=== PATIENT | male | born 1950 | race Caucasian/White ===

== ENCOUNTER 2016-12-17 13:17 | Emergency (ER) | payer MEDICARE, OTHER ==
[~2016-12-17] VITALS: Ht 160 cm; Wt 83.2 kg
[2016-12-17] MEDS ORDERED: ACETAMINOPHEN 500 MG TABLET PO ONE (14:30)
[2016-12-17] MEDS ORDERED: CEPHALEXIN MONOHYDRATE 500 MG CAPSULE PO ONE (14:30)
[2016-12-17] MEDS ORDERED: DiphenhydrAMINE HCL 25 MG CAPSULE PO ONE (14:30)
[2016-12-17 15:45] VITALS: BP 144/93
== END 2016-12-17 15:49 | disposition home or self-care (01) ==
LOC: EMS 13:19
DX: T78.40XA Allergy, unspecified, initial encounter (principal); L25.9 Unspecified contact dermatitis, unspecified cause; L03.211 Cellulitis of face; L02.01 Cutaneous abscess of face
CPT/HCPCS: 99284

== ENCOUNTER 2022-02-08 17:06 | Emergency (ER) | payer MEDICARE, OTHER ==
[~2022-02-08] VITALS: Ht 162.6 cm; Wt 77.3 kg
[2022-02-08] MEDS ORDERED: METHOCARBAMOL 500 MG TABLET PO ONE (18:00)
[2022-02-08] MEDS ORDERED: ACETAMINOPHEN 500 MG TABLET PO ONE (18:00)
[2022-02-08] MEDS ORDERED: KETOROLAC TROMETHAMINE 10 MG TABLET PO ONE (18:00)
[2022-02-08] MEDS ORDERED: GABA-1181 PO ×2 (20:07→21:00)
[2022-02-08] MEDS ORDERED: NAPR-1025 PO ×2 (20:07→21:00)
[2022-02-08 20:23] VITALS: BP 168/90
== END 2022-02-08 21:08 | disposition home or self-care (01) ==
LOC: EMS 17:15
DX: S46.012A Strain of muscle(s) and tendon(s) of the rotator cuff of left shoulder, initial encounter (principal); S50.12XA Contusion of left forearm, initial encounter; E11.9 Type 2 diabetes mellitus without complications; F10.20 Alcohol dependence, uncomplicated; Y04.8XXA Assault by other bodily force, initial encounter; Y93.89 Activity, other specified; Y92.89 Other specified places as the place of occurrence of the external cause; Y99.8 Other external cause status
CPT/HCPCS: 82962; 99284

== ENCOUNTER 2022-03-22 13:31 | Inpatient (IN) | payer MEDICARE, OTHER ==
[~2022-03-22] VITALS: Ht 160 cm; Wt 74.4 kg
[~2022-03-22 13:31] MED LIST: GABA-1181 PO; NAPR-1025 PO
[2022-03-22 15:50] VITALS: BP 154/87
[2022-03-22] MEDS ORDERED: PNEUMOCOCCAL VACCINE POLYVALENT 0.5 ML VIAL [PPSV23] IM. ONE (17:30)
[2022-03-22] MEDS ORDERED: INFLUENZA VIRUS VACCINE QVS 2022-23 (6MO+)/PF 60 MCG/0.5 ML SYRINGE IM. ONE (17:30)
[2022-03-22] MEDS ORDERED: ONDANSETRON HCL 4 MG TABLET PO PRN (17:45)
[2022-03-22 18:16] LABS: GLUCOMETER DEV NAME(LOC) 2WR.2B; GLUCOSE,POINT OF CARE 143 MG/DL (70-110)
[2022-03-22] MEDS ORDERED: DEXTROSE 50%-WATER 25 GM/50 ML SYRINGE IVP PRN (19:45)
[2022-03-22] MEDS: ETHYL ALCOHOL 62% ANTISEPTIC NASAL SANITIZER 0.6 ML AMPUL NASAL SCH (20:09)
[2022-03-22] MEDS: GABAPENTIN 300 MG CAPSULE PO SCH (20:10)
[2022-03-22] MEDS: MELATONIN 5 MG TABLET PO PRN (20:10)
[2022-03-22] MEDS: ATORVASTATIN CALCIUM 40 MG TABLET PO SCH (20:10)
[2022-03-22] MEDS: INSULIN GLARGINE,HUM.REC.ANLOG 100 UNITS/ML SQ SCH (20:11)
[2022-03-22] MEDS: INSULIN LISPRO 100 UNITS/ML SQ PRN (20:12)
[2022-03-22] MEDS: ACETAMINOPHEN 325 MG TABLET PO PRN (20:14)
[2022-03-22 20:15] VITALS: BP 140/66
[2022-03-22] MEDS: -LIDODERM PATCH NOTE- MISC SCH (21:00)
[2022-03-23 05:46] LABS: GLUCOMETER DEV NAME(LOC) 2WR.1C; GLUCOSE,POINT OF CARE 228 MG/DL (70-110)
[2022-03-23 07:16] LABS: BASOPHILS % (AUTO) 0.2 % (0.0-2.0); EOSINOPHILS % (AUTO) 1.4 % (1.0-6.0); GLUCOMETER DEV NAME(LOC) 2WR.2B; GLUCOSE,POINT OF CARE 125 MG/DL (70-110); HEMATOCRIT 47.2 % (41-53); HEMOGLOBIN 16.3 g/dL (13.5-17.5); LYMPHOCYTES # (AUTO) 1.4 K/uL (1.0-4.8); LYMPHOCYTES % (AUTO) 14.5 % (22.0-44.0); MEAN CORPUSCULAR HEMOGLOBIN 33.1 pg (26.0-34.0); MEAN CORPUSCULAR HGB CONC 34.5 G/dL (31.0-37.0); MEAN CORPUSCULAR VOLUME 96 fL (80-100); MONOCYTES # (AUTO) 0.8 K/uL (0.1-1.0); MONOCYTES % (AUTO) 8.3 % (2.0-9.0); NEUTROPHILS # (AUTO) 7.5 K/uL (1.8-7.7); NEUTROPHILS % (AUTO) 75.6 % (40.0-70.0); PLATELET COUNT (AUTO) 262 K/uL (150-450); RED BLOOD CELL COUNT(AUTO) 4.91 MIL/uL (4.50-5.90); RED CELL DISTRIBUTION WIDTH 12.8 % (11.5-14.5)
[2022-03-23] MEDS: CLOPIDOGREL BISULFATE 75 MG TABLET PO SCH (08:17)
[2022-03-23] MEDS: DONEPEZIL HCL 5 MG TABLET PO SCH (08:17)
[2022-03-23] MEDS: GABAPENTIN 300 MG CAPSULE PO SCH ×3 (08:17→20:09)
[2022-03-23] MEDS: ASPIRIN 81 MG CHEWABLE TABLET PO SCH (08:17)
[2022-03-23] MEDS: ENOXAPARIN SODIUM 40 MG/0.4 ML PF SYRINGE SQ SCH (08:18)
[2022-03-23] MEDS: ETHYL ALCOHOL 62% ANTISEPTIC NASAL SANITIZER 0.6 ML AMPUL NASAL SCH ×2 (08:18→20:09)
[2022-03-23] MEDS: TELMISARTAN 40 MG TABLET PO SCH (08:19)
[2022-03-23] MEDS: LIDOCAINE 5% TRANSDERMAL PATCH TD SCH (08:19)
[2022-03-23] MEDS: MECLIZINE HCL 25 MG TABLET PO PRN (08:20)
[2022-03-23] MEDS: POLYETHYLENE GLYCOL 3350 17 GM PACKET PO SCH (08:21)
[2022-03-23 08:51] LABS: ALANINE AMINOTRANSFERASE 46 U/L (12-78); ALBUMIN 3.1 g/dL (3.4-5.0); ALKALINE PHOSPHATASE 59 U/L (46-116); ANION GAP 8 mmol/L (8-16); ASPARTATE AMINOTRANSFERASE 25 U/L (15-37); BILIRUBIN,TOTAL 1.3 mg/dL (0.1-1.0); CALCIUM, TOTAL 8.4 mg/dL (8.8-10.5); CARBON DIOXIDE 29 mmol/L (22-29); CHLORIDE 100 mmol/L (98-107); CREATININE 0.83 mg/dL (0.60-1.30); GLUCOSE,RANDOM 158 mg/dL (70-110); POTASSIUM 3.7 mmol/L (3.5-5.1); SODIUM SERUM 137 mmol/L (136-145); TOTAL PROTEIN, SERUM 6.9 g/dL (6.4-8.2); UREA NITROGEN, BLOOD 16 mg/dL (7-18)
[2022-03-23 08:53] LABS: GLOMERULAR FILTR. RATE CALC > 60 mL/min (>60)
[2022-03-23 09:01] VITALS: BP 127/76
[2022-03-23] MEDS: INSULIN LISPRO 100 UNITS/ML SQ PRN ×3 (12:23→20:07)
[2022-03-23 13:31] LABS: GLUCOMETER DEV NAME(LOC) 2WR.2B; GLUCOSE,POINT OF CARE 237 MG/DL (70-110)
[2022-03-23 17:41] LABS: GLUCOMETER DEV NAME(LOC) 2WR.2B; GLUCOSE,POINT OF CARE 269 MG/DL (70-110)
[2022-03-23 20:00] VITALS: BP 129/63
[2022-03-23] MEDS: INSULIN GLARGINE,HUM.REC.ANLOG 100 UNITS/ML SQ SCH (20:08)
[2022-03-23] MEDS: -LIDODERM PATCH NOTE- MISC SCH (20:09)
[2022-03-23] MEDS: MELATONIN 5 MG TABLET PO PRN (20:09)
[2022-03-23] MEDS: ATORVASTATIN CALCIUM 40 MG TABLET PO SCH (20:09)
[2022-03-23 20:26] LABS: GLUCOMETER DEV NAME(LOC) 2WR.1C; GLUCOSE,POINT OF CARE 232 MG/DL (70-110)
[2022-03-24 06:56] LABS: GLUCOMETER DEV NAME(LOC) 2WR.1C; GLUCOSE,POINT OF CARE 188 MG/DL (70-110)
[2022-03-24 08:00] VITALS: BP 142/83
[2022-03-24] MEDS: LIDOCAINE 5% TRANSDERMAL PATCH TD SCH (08:00)
[2022-03-24] MEDS: CLOPIDOGREL BISULFATE 75 MG TABLET PO SCH (08:01)
[2022-03-24] MEDS: ASPIRIN 81 MG CHEWABLE TABLET PO SCH (08:01)
[2022-03-24] MEDS: GABAPENTIN 300 MG CAPSULE PO SCH ×3 (08:01→20:15)
[2022-03-24] MEDS: ENOXAPARIN SODIUM 40 MG/0.4 ML PF SYRINGE SQ SCH (08:01)
[2022-03-24] MEDS: POLYETHYLENE GLYCOL 3350 17 GM PACKET PO SCH (08:01)
[2022-03-24] MEDS: DONEPEZIL HCL 5 MG TABLET PO SCH (08:01)
[2022-03-24] MEDS: TELMISARTAN 40 MG TABLET PO SCH (08:01)
[2022-03-24] MEDS: INSULIN LISPRO 100 UNITS/ML SQ PRN ×4 (08:12→20:20)
[2022-03-24] MEDS: ETHYL ALCOHOL 62% ANTISEPTIC NASAL SANITIZER 0.6 ML AMPUL NASAL SCH ×2 (08:53→20:15)
[2022-03-24 12:01] LABS: GLUCOMETER DEV NAME(LOC) 2WR.1C; GLUCOSE,POINT OF CARE 301 MG/DL (70-110)
[2022-03-24 19:18] VITALS: BP 125/66
[2022-03-24] MEDS: -LIDODERM PATCH NOTE- MISC SCH (20:15)
[2022-03-24] MEDS: ATORVASTATIN CALCIUM 40 MG TABLET PO SCH (20:15)
[2022-03-24] MEDS: MELATONIN 5 MG TABLET PO PRN (20:15)
[2022-03-24] MEDS: INSULIN GLARGINE,HUM.REC.ANLOG 100 UNITS/ML SQ SCH (20:19)
[2022-03-24 21:28] LABS: GLUCOMETER DEV NAME(LOC) 2WR.2B; GLUCOSE,POINT OF CARE 235 MG/DL (70-110)
[2022-03-24 21:57] LABS: GLUCOMETER DEV NAME(LOC) 2WR.1C; GLUCOSE,POINT OF CARE 172 MG/DL (70-110)
[2022-03-25 07:42] LABS: GLUCOMETER DEV NAME(LOC) 2WR.2B; GLUCOSE,POINT OF CARE 171 MG/DL (70-110)
[2022-03-25 08:05] VITALS: BP 128/90
[2022-03-25] MEDS: ASPIRIN 81 MG CHEWABLE TABLET PO SCH (08:18)
[2022-03-25] MEDS: ETHYL ALCOHOL 62% ANTISEPTIC NASAL SANITIZER 0.6 ML AMPUL NASAL SCH ×2 (08:18→20:33)
[2022-03-25] MEDS: CLOPIDOGREL BISULFATE 75 MG TABLET PO SCH (08:19)
[2022-03-25] MEDS: LIDOCAINE 5% TRANSDERMAL PATCH TD SCH (08:19)
[2022-03-25] MEDS: ENOXAPARIN SODIUM 40 MG/0.4 ML PF SYRINGE SQ SCH (08:19)
[2022-03-25] MEDS: POLYETHYLENE GLYCOL 3350 17 GM PACKET PO SCH (08:19)
[2022-03-25] MEDS: GABAPENTIN 300 MG CAPSULE PO SCH ×3 (08:19→20:34)
[2022-03-25] MEDS: TELMISARTAN 40 MG TABLET PO SCH (08:19)
[2022-03-25] MEDS: DONEPEZIL HCL 5 MG TABLET PO SCH (08:21)
[2022-03-25] MEDS: INSULIN LISPRO 100 UNITS/ML SQ PRN ×4 (08:26→20:38)
[2022-03-25 13:32] LABS: GLUCOMETER DEV NAME(LOC) 2WR.2B; GLUCOSE,POINT OF CARE 261 MG/DL (70-110)
[2022-03-25 18:08] LABS: GLUCOMETER DEV NAME(LOC) 2WR.1C; GLUCOSE,POINT OF CARE 207 MG/DL (70-110)
[2022-03-25] MEDS: -LIDODERM PATCH NOTE- MISC SCH (20:33)
[2022-03-25] MEDS: ATORVASTATIN CALCIUM 40 MG TABLET PO SCH (20:33)
[2022-03-25 20:35] VITALS: BP 126/64
[2022-03-25] MEDS: INSULIN GLARGINE,HUM.REC.ANLOG 100 UNITS/ML SQ SCH (20:36)
[2022-03-25] MEDS: MELATONIN 5 MG TABLET PO PRN (20:39)
[2022-03-25 21:13] LABS: GLUCOMETER DEV NAME(LOC) 2WR.1C; GLUCOSE,POINT OF CARE 254 MG/DL (70-110)
[2022-03-26 06:54] LABS: GLUCOMETER DEV NAME(LOC) 2WR.1C; GLUCOSE,POINT OF CARE 233 MG/DL (70-110)
[2022-03-26 08:00] VITALS: BP 146/81
[2022-03-26] MEDS: LIDOCAINE 5% TRANSDERMAL PATCH TD SCH (08:03)
[2022-03-26] MEDS: GABAPENTIN 300 MG CAPSULE PO SCH ×3 (08:04→20:04)
[2022-03-26] MEDS: ENOXAPARIN SODIUM 40 MG/0.4 ML PF SYRINGE SQ SCH (08:04)
[2022-03-26] MEDS: TELMISARTAN 40 MG TABLET PO SCH (08:04)
[2022-03-26] MEDS: CLOPIDOGREL BISULFATE 75 MG TABLET PO SCH (08:04)
[2022-03-26] MEDS: ASPIRIN 81 MG CHEWABLE TABLET PO SCH (08:04)
[2022-03-26] MEDS: DONEPEZIL HCL 5 MG TABLET PO SCH (08:04)
[2022-03-26] MEDS: POLYETHYLENE GLYCOL 3350 17 GM PACKET PO SCH (08:04)
[2022-03-26] MEDS: ETHYL ALCOHOL 62% ANTISEPTIC NASAL SANITIZER 0.6 ML AMPUL NASAL SCH ×2 (08:05→20:04)
[2022-03-26] MEDS: INSULIN LISPRO 100 UNITS/ML SQ PRN ×4 (08:09→20:09)
[2022-03-26 11:54] LABS: GLUCOMETER DEV NAME(LOC) 2WR.1C; GLUCOSE,POINT OF CARE 328 MG/DL (70-110)
[2022-03-26 17:27] LABS: GLUCOMETER DEV NAME(LOC) 2WR.2B; GLUCOSE,POINT OF CARE 175 MG/DL (70-110)
[2022-03-26] MEDS: ATORVASTATIN CALCIUM 40 MG TABLET PO SCH (20:04)
[2022-03-26] MEDS: MELATONIN 5 MG TABLET PO PRN (20:04)
[2022-03-26] MEDS: INSULIN GLARGINE,HUM.REC.ANLOG 100 UNITS/ML SQ SCH (20:08)
[2022-03-26] MEDS: -LIDODERM PATCH NOTE- MISC SCH (20:10)
[2022-03-26 20:44] VITALS: BP 143/74
[2022-03-26 21:33] LABS: GLUCOMETER DEV NAME(LOC) 2WR.1C; GLUCOSE,POINT OF CARE 203 MG/DL (70-110)
[2022-03-27 06:58] LABS: GLUCOMETER DEV NAME(LOC) 2WR.1C; GLUCOSE,POINT OF CARE 213 MG/DL (70-110)
[2022-03-27] MEDS: DONEPEZIL HCL 5 MG TABLET PO SCH (07:53)
[2022-03-27] MEDS: ASPIRIN 81 MG CHEWABLE TABLET PO SCH (07:53)
[2022-03-27] MEDS: GABAPENTIN 300 MG CAPSULE PO SCH ×3 (07:54→20:12)
[2022-03-27] MEDS: ETHYL ALCOHOL 62% ANTISEPTIC NASAL SANITIZER 0.6 ML AMPUL NASAL SCH ×2 (07:54→20:13)
[2022-03-27] MEDS: CLOPIDOGREL BISULFATE 75 MG TABLET PO SCH (07:54)
[2022-03-27] MEDS: POLYETHYLENE GLYCOL 3350 17 GM PACKET PO SCH (07:54)
[2022-03-27] MEDS: ENOXAPARIN SODIUM 40 MG/0.4 ML PF SYRINGE SQ SCH (07:54)
[2022-03-27] MEDS: LIDOCAINE 5% TRANSDERMAL PATCH TD SCH (07:55)
[2022-03-27 08:00] VITALS: BP 124/64
[2022-03-27] MEDS: TELMISARTAN 40 MG TABLET PO SCH (08:08)
[2022-03-27] MEDS: INSULIN LISPRO 100 UNITS/ML SQ PRN ×4 (08:19→20:18)
[2022-03-27 12:33] LABS: GLUCOMETER DEV NAME(LOC) 2WR.1C; GLUCOSE,POINT OF CARE 320 MG/DL (70-110)
[2022-03-27] MEDS: MetFORMIN HCL 500 MG TABLET PO SCH (16:56)
[2022-03-27 18:08] LABS: GLUCOMETER DEV NAME(LOC) 2WR.1C; GLUCOSE,POINT OF CARE 158 MG/DL (70-110)
[2022-03-27 19:41] VITALS: BP 142/81
[2022-03-27] MEDS: ATORVASTATIN CALCIUM 40 MG TABLET PO SCH (20:12)
[2022-03-27] MEDS: MELATONIN 5 MG TABLET PO PRN (20:12)
[2022-03-27] MEDS: -LIDODERM PATCH NOTE- MISC SCH (20:12)
[2022-03-27] MEDS: INSULIN GLARGINE,HUM.REC.ANLOG 100 UNITS/ML SQ SCH (20:19)
[2022-03-27 21:22] LABS: GLUCOMETER DEV NAME(LOC) 2WR.2B; GLUCOSE,POINT OF CARE 190 MG/DL (70-110)
[2022-03-28] MEDS: MetFORMIN HCL 500 MG TABLET PO SCH ×2 (08:20→17:45)
[2022-03-28] MEDS: ASPIRIN 81 MG CHEWABLE TABLET PO SCH (08:21)
[2022-03-28] MEDS: POLYETHYLENE GLYCOL 3350 17 GM PACKET PO SCH (08:21)
[2022-03-28] MEDS: ENOXAPARIN SODIUM 40 MG/0.4 ML PF SYRINGE SQ SCH (08:21)
[2022-03-28] MEDS: DONEPEZIL HCL 5 MG TABLET PO SCH (08:22)
[2022-03-28] MEDS: CLOPIDOGREL BISULFATE 75 MG TABLET PO SCH (08:22)
[2022-03-28] MEDS: TELMISARTAN 40 MG TABLET PO SCH (08:22)
[2022-03-28] MEDS: GABAPENTIN 300 MG CAPSULE PO SCH ×3 (08:22→20:14)
[2022-03-28] MEDS: LIDOCAINE 5% TRANSDERMAL PATCH TD SCH (08:23)
[2022-03-28] MEDS: MECLIZINE HCL 25 MG TABLET PO PRN ×3 (08:24→20:14)
[2022-03-28] MEDS: ETHYL ALCOHOL 62% ANTISEPTIC NASAL SANITIZER 0.6 ML AMPUL NASAL SCH ×2 (08:27→20:13)
[2022-03-28] MEDS: INSULIN LISPRO 100 UNITS/ML SQ PRN ×4 (08:29→20:27)
[2022-03-28 10:16] VITALS: BP 146/70
[2022-03-28 12:58] LABS: GLUCOMETER DEV NAME(LOC) 2WR.2B; GLUCOSE,POINT OF CARE 247 MG/DL (70-110)
[2022-03-28 12:58] LABS: GLUCOMETER DEV NAME(LOC) 2WR.1C; GLUCOSE,POINT OF CARE 199 MG/DL (70-110)
[2022-03-28] MEDS ORDERED: *NON-FORMULARY MED [ENTER DRUG, DOSE, FREQ IN COMMENTS] CLINICAL ONE (16:30)
[2022-03-28 17:17] LABS: GLUCOMETER DEV NAME(LOC) 2WR.2B; GLUCOSE,POINT OF CARE 155 MG/DL (70-110)
[2022-03-28 20:08] VITALS: BP 145/77
[2022-03-28] MEDS: -LIDODERM PATCH NOTE- MISC SCH (20:13)
[2022-03-28] MEDS: ATORVASTATIN CALCIUM 40 MG TABLET PO SCH (20:14)
[2022-03-28] MEDS: MELATONIN 5 MG TABLET PO PRN (20:15)
[2022-03-28] MEDS: INSULIN GLARGINE,HUM.REC.ANLOG 100 UNITS/ML SQ SCH (20:26)
[2022-03-28 21:02] LABS: GLUCOMETER DEV NAME(LOC) 2WR.2B; GLUCOSE,POINT OF CARE 192 MG/DL (70-110)
[2022-03-29 08:03] LABS: GLUCOMETER DEV NAME(LOC) 2WR.1C; GLUCOSE,POINT OF CARE 158 MG/DL (70-110)
[2022-03-29] MEDS: POLYETHYLENE GLYCOL 3350 17 GM PACKET PO SCH (09:00)
[2022-03-29] MEDS ORDERED: OZEMPIC 2 MG/1.5 ML SQ SCH (09:00)
[2022-03-29] MEDS: DONEPEZIL HCL 5 MG TABLET PO SCH (09:05)
[2022-03-29] MEDS: ASPIRIN 81 MG CHEWABLE TABLET PO SCH (09:05)
[2022-03-29] MEDS: MetFORMIN HCL 500 MG TABLET PO SCH ×2 (09:05→18:03)
[2022-03-29] MEDS: GABAPENTIN 300 MG CAPSULE PO SCH ×3 (09:05→21:26)
[2022-03-29] MEDS: CLOPIDOGREL BISULFATE 75 MG TABLET PO SCH (09:05)
[2022-03-29] MEDS: ETHYL ALCOHOL 62% ANTISEPTIC NASAL SANITIZER 0.6 ML AMPUL NASAL SCH ×2 (09:06→21:26)
[2022-03-29] MEDS: ENOXAPARIN SODIUM 40 MG/0.4 ML PF SYRINGE SQ SCH (09:06)
[2022-03-29] MEDS: LIDOCAINE 5% TRANSDERMAL PATCH TD SCH (09:06)
[2022-03-29] MEDS: MECLIZINE HCL 25 MG TABLET PO PRN ×2 (09:07→13:19)
[2022-03-29] MEDS: TELMISARTAN 40 MG TABLET PO SCH (09:07)
[2022-03-29] MEDS: INSULIN LISPRO 100 UNITS/ML SQ PRN ×2 (09:08→23:18)
[2022-03-29 09:30] VITALS: BP 120/79
[2022-03-29 12:08] LABS: GLUCOMETER DEV NAME(LOC) 2WR.2B; GLUCOSE,POINT OF CARE 188 MG/DL (70-110)
[2022-03-29 17:43] LABS: GLUCOMETER DEV NAME(LOC) 2WR.2B; GLUCOSE,POINT OF CARE 130 MG/DL (70-110)
[2022-03-29 19:51] VITALS: BP 132/64
[2022-03-29] MEDS: ATORVASTATIN CALCIUM 40 MG TABLET PO SCH (21:26)
[2022-03-29] MEDS: -LIDODERM PATCH NOTE- MISC SCH (21:27)
[2022-03-29] MEDS: INSULIN GLARGINE,HUM.REC.ANLOG 100 UNITS/ML SQ SCH (23:03)
[2022-03-30 00:03] LABS: GLUCOMETER DEV NAME(LOC) 2WR.1C; GLUCOSE,POINT OF CARE 146 MG/DL (70-110)
[2022-03-30 07:12] LABS: GLUCOMETER DEV NAME(LOC) 2WR.2B; GLUCOSE,POINT OF CARE 142 MG/DL (70-110)
[2022-03-30 08:49] VITALS: BP 128/68
[2022-03-30] MEDS: ENOXAPARIN SODIUM 40 MG/0.4 ML PF SYRINGE SQ SCH (08:55)
[2022-03-30] MEDS: LIDOCAINE 5% TRANSDERMAL PATCH TD SCH (08:58)
[2022-03-30] MEDS: MetFORMIN HCL 500 MG TABLET PO SCH ×2 (08:58→16:51)
[2022-03-30] MEDS: ASPIRIN 81 MG CHEWABLE TABLET PO SCH (08:59)
[2022-03-30] MEDS: ETHYL ALCOHOL 62% ANTISEPTIC NASAL SANITIZER 0.6 ML AMPUL NASAL SCH ×2 (08:59→20:56)
[2022-03-30] MEDS: POLYETHYLENE GLYCOL 3350 17 GM PACKET PO SCH (09:00)
[2022-03-30] MEDS: GABAPENTIN 300 MG CAPSULE PO SCH ×3 (09:00→20:53)
[2022-03-30] MEDS: CLOPIDOGREL BISULFATE 75 MG TABLET PO SCH (09:00)
[2022-03-30] MEDS: TELMISARTAN 40 MG TABLET PO SCH (09:02)
[2022-03-30] MEDS: DONEPEZIL HCL 5 MG TABLET PO SCH (09:06)
[2022-03-30] MEDS: MECLIZINE HCL 25 MG TABLET PO PRN (10:49)
[2022-03-30] MEDS: INSULIN LISPRO 100 UNITS/ML SQ PRN ×2 (12:23→20:55)
[2022-03-30 12:36] LABS: GLUCOMETER DEV NAME(LOC) 2WR.1C; GLUCOSE,POINT OF CARE 151 MG/DL (70-110)
[2022-03-30 17:07] LABS: GLUCOMETER DEV NAME(LOC) 2WR.2B; GLUCOSE,POINT OF CARE 115 MG/DL (70-110)
[2022-03-30 19:54] VITALS: BP 118/60
[2022-03-30] MEDS: INSULIN GLARGINE,HUM.REC.ANLOG 100 UNITS/ML SQ SCH (20:53)
[2022-03-30] MEDS: ATORVASTATIN CALCIUM 40 MG TABLET PO SCH (20:53)
[2022-03-30] MEDS: -LIDODERM PATCH NOTE- MISC SCH (20:55)
[2022-03-30 22:22] LABS: GLUCOMETER DEV NAME(LOC) 2WR.1C; GLUCOSE,POINT OF CARE 175 MG/DL (70-110)
[2022-03-31 08:05] VITALS: BP 102/62
[2022-03-31] MEDS: MECLIZINE HCL 25 MG TABLET PO PRN (08:22)
[2022-03-31] MEDS: POLYETHYLENE GLYCOL 3350 17 GM PACKET PO SCH (09:00)
[2022-03-31 09:26] LABS: GLUCOMETER DEV NAME(LOC) 2WR.1C; GLUCOSE,POINT OF CARE 173 MG/DL (70-110)
[2022-03-31] MEDS: ASPIRIN 81 MG CHEWABLE TABLET PO SCH (09:39)
[2022-03-31] MEDS: DONEPEZIL HCL 5 MG TABLET PO SCH (09:45)
[2022-03-31] MEDS: GABAPENTIN 300 MG CAPSULE PO SCH ×3 (09:45→21:39)
[2022-03-31] MEDS: ETHYL ALCOHOL 62% ANTISEPTIC NASAL SANITIZER 0.6 ML AMPUL NASAL SCH ×2 (09:45→21:38)
[2022-03-31] MEDS: CLOPIDOGREL BISULFATE 75 MG TABLET PO SCH (09:46)
[2022-03-31] MEDS: LIDOCAINE 5% TRANSDERMAL PATCH TD SCH (09:46)
[2022-03-31] MEDS: TELMISARTAN 40 MG TABLET PO SCH (09:46)
[2022-03-31] MEDS: ENOXAPARIN SODIUM 40 MG/0.4 ML PF SYRINGE SQ SCH (09:46)
[2022-03-31 09:50] VITALS: BP 116/69
[2022-03-31] MEDS: MetFORMIN HCL 500 MG TABLET PO SCH ×2 (10:18→17:59)
[2022-03-31 10:21] LABS: GLUCOMETER DEV NAME(LOC) 2WR.1C; GLUCOSE,POINT OF CARE 153 MG/DL (70-110)
[2022-03-31 11:00] VITALS: BP 146/66
[2022-03-31 15:45] LABS: GLUCOMETER DEV NAME(LOC) 2WR.1C; GLUCOSE,POINT OF CARE 148 MG/DL (70-110)
[2022-03-31 17:56] LABS: GLUCOMETER DEV NAME(LOC) 2WR.2B; GLUCOSE,POINT OF CARE 180 MG/DL (70-110)
[2022-03-31 20:00] VITALS: BP 126/80
[2022-03-31] MEDS: -LIDODERM PATCH NOTE- MISC SCH (21:34)
[2022-03-31] MEDS: ATORVASTATIN CALCIUM 40 MG TABLET PO SCH (21:38)
[2022-03-31] MEDS: INSULIN GLARGINE,HUM.REC.ANLOG 100 UNITS/ML SQ SCH (21:40)
[2022-03-31 22:06] LABS: GLUCOMETER DEV NAME(LOC) 2WR.2B; GLUCOSE,POINT OF CARE 132 MG/DL (70-110)
[2022-04-01 07:16] LABS: GLUCOMETER DEV NAME(LOC) 2WR.2B; GLUCOSE,POINT OF CARE 136 MG/DL (70-110)
[2022-04-01 08:32] VITALS: BP 127/64
[2022-04-01] MEDS: POLYETHYLENE GLYCOL 3350 17 GM PACKET PO SCH (09:00)
[2022-04-01] MEDS: ENOXAPARIN SODIUM 40 MG/0.4 ML PF SYRINGE SQ SCH (09:41)
[2022-04-01] MEDS: CLOPIDOGREL BISULFATE 75 MG TABLET PO SCH (09:41)
[2022-04-01] MEDS: GABAPENTIN 300 MG CAPSULE PO SCH ×2 (09:42→15:21)
[2022-04-01] MEDS: ASPIRIN 81 MG CHEWABLE TABLET PO SCH (09:42)
[2022-04-01] MEDS: TELMISARTAN 40 MG TABLET PO SCH (09:42)
[2022-04-01] MEDS: MECLIZINE HCL 25 MG TABLET PO PRN ×2 (09:43→10:00)
[2022-04-01] MEDS: LIDOCAINE 5% TRANSDERMAL PATCH TD SCH (09:43)
[2022-04-01] MEDS: ETHYL ALCOHOL 62% ANTISEPTIC NASAL SANITIZER 0.6 ML AMPUL NASAL SCH (09:44)
[2022-04-01] MEDS: DONEPEZIL HCL 5 MG TABLET PO SCH (09:44)
[2022-04-01] MEDS: MetFORMIN HCL 500 MG TABLET PO SCH ×2 (09:45→17:00)
[2022-04-01] MEDS: ACETAMINOPHEN 325 MG TABLET PO PRN (15:09)
[2022-04-01 15:50] VITALS: BP 104/63
[2022-04-01 16:26] LABS: GLUCOMETER DEV NAME(LOC) 2WR.2B; GLUCOSE,POINT OF CARE 159 MG/DL (70-110)
[2022-04-01 18:07] VITALS: BP 115/77
[2022-04-01 21:46] LABS: GLUCOMETER DEV NAME(LOC) 2WR.1C; GLUCOSE,POINT OF CARE 184 MG/DL (70-110)
[2022-04-02 16:36] LABS: GLUCOMETER DEV NAME(LOC) 5S.1B; GLUCOSE,POINT OF CARE 127 MG/DL (70-110)
[2022-04-26] MEDS ORDERED: OZEMPIC 2 MG/1.5 ML SQ SCH (09:00)
== END 2022-04-01 19:45 | disposition short-term general hospital (02) | DRG 64 ==
LOC: 2WR 15:45
PROVIDERS: ADMIT Physical Medicine & Rehabilitation; ATTEND Physical Medicine & Rehabilitation
DX: I63.541 Cerebral infarction due to unspecified occlusion or stenosis of right cerebellar artery (principal); J18.9 Pneumonia, unspecified organism; E87.1 Hypo-osmolality and hyponatremia; F03.93 Unspecified dementia, unspecified severity, with mood disturbance; G81.94 Hemiplegia, unspecified affecting left nondominant side; I65.09 Occlusion and stenosis of unspecified vertebral artery; G89.29 Other chronic pain; I10 Essential (primary) hypertension; E78.5 Hyperlipidemia, unspecified; E11.9 Type 2 diabetes mellitus without complications; Z79.01 Long term (current) use of anticoagulants; Z86.73 Personal history of transient ischemic attack (TIA), and cerebral infarction without residual deficits; Z87.891 Personal history of nicotine dependence; Z91.199 Patient's noncompliance with other medical treatment and regimen due to unspecified reason; Z79.82 Long term (current) use of aspirin; Z88.8 Allergy status to other drugs, medicaments and biological substances
CPT/HCPCS: 70450; 70551; 80053; 82962; 85025; 87081; 90686; 90732; 92507; 92523; 93005; 97110; 97112; 97116; 97150; 97163; 97166; 97530; 97535; 99366; J1650; J1815; Q0162; Q9967

== ENCOUNTER 2022-04-01 17:30 | Inpatient (IN) | payer MEDICARE, OTHER ==
[2022-04-01 19:23] VITALS: BP 126/82
[2022-04-01] MEDS ORDERED: HYDROCODONE/ACETAMINOPHEN 5-325 MG TABLET PO PRN (20:15)
[2022-04-01] MEDS ORDERED: ONDANSETRON HCL 4 MG/2 ML VIAL IVP PRN (20:15)
[2022-04-01] MEDS ORDERED: BISACODYL 10 MG RECTAL RECTAL SUPPOSITORY PR PRN (20:15)
[2022-04-01] MEDS ORDERED: ACETAMINOPHEN 325 MG TABLET PO PRN (20:15)
[2022-04-01] MEDS ORDERED: ZOLPIDEM TARTRATE 5 MG TABLET PO PRN (20:15)
[2022-04-01] MEDS ORDERED: MORPHINE SULFATE 2 MG/ML SYRINGE IVP PRN (20:15)
[2022-04-01] MEDS ORDERED: MAGNESIUM HYDROXIDE SUSPENSION 30 ML UDCUP PO PRN (20:15)
[2022-04-01] MEDS: ASPIRIN 81 MG CHEWABLE TABLET PO SCH (21:40)
[2022-04-01] MEDS: ATORVASTATIN CALCIUM 40 MG TABLET PO SCH (21:40)
[2022-04-01] MEDS: DOCUSATE SODIUM 100 MG CAPSULE PO SCH (21:40)
[2022-04-01] MEDS: CLOPIDOGREL BISULFATE 75 MG TABLET PO SCH (21:40)
[2022-04-01 23:32] VITALS: BP 140/75
[2022-04-02] MEDS: HEPARIN SODIUM,PORCINE 5,000 UNITS/ML VIAL SQ SCH ×3 (00:01→16:41)
[2022-04-02 04:00] VITALS: BP 136/61
[2022-04-02 07:23] VITALS: BP 118/68
[2022-04-02] MEDS: PANTOPRAZOLE SODIUM 40 MG DR TABLET PO SCH (08:34)
[2022-04-02] MEDS: ASPIRIN 81 MG CHEWABLE TABLET PO SCH (08:34)
[2022-04-02] MEDS: CLOPIDOGREL BISULFATE 75 MG TABLET PO SCH (08:34)
[2022-04-02] MEDS: DOCUSATE SODIUM 100 MG CAPSULE PO SCH ×2 (08:35→21:00)
[2022-04-02 11:42] VITALS: BP 126/87
[2022-04-02 12:00] LABS: BASOPHILS % (AUTO) 0.5 % (0.0-2.0); EOSINOPHILS % (AUTO) 0.7 % (1.0-6.0); HEMOGLOBIN 16.9 g/dL (13.5-17.5); LYMPHOCYTES # (AUTO) 1.3 K/uL (1.0-4.8); LYMPHOCYTES % (AUTO) 11.4 % (22.0-44.0); MEAN CORPUSCULAR HEMOGLOBIN 33.1 pg (26.0-34.0); MEAN CORPUSCULAR HGB CONC 33.9 G/dL (31.0-37.0); MEAN CORPUSCULAR VOLUME 98 fL (80-100); MONOCYTES # (AUTO) 0.9 K/uL (0.1-1.0); MONOCYTES % (AUTO) 7.8 % (2.0-9.0); NEUTROPHILS # (AUTO) 9.1 K/uL (1.8-7.7); NEUTROPHILS % (AUTO) 79.6 % (40.0-70.0); PLATELET COUNT (AUTO) 329 K/uL (150-450); RED BLOOD CELL COUNT(AUTO) 5.11 MIL/uL (4.50-5.90)
[2022-04-02 12:15] LABS: HEMOGLOBIN A1C 8.6 % (3.8-5.6)
[2022-04-02 12:18] LABS: ANION GAP 5 mmol/L (8-16); CALCIUM, TOTAL 8.7 mg/dL (8.8-10.5); CARBON DIOXIDE 29 mmol/L (22-29); CHLORIDE 95 mmol/L (98-107); CHOLESTEROL 112 mg/dL (131-200); CREATININE 1.11 mg/dL (0.60-1.30); GLOMERULAR FILTR. RATE CALC > 60 mL/min (>60); GLUCOSE,RANDOM 177 mg/dL (70-110); HDL CHOLESTEROL 37 mg/dL (40-60); LDL CHOL (CALC.) 57 mg/dL (0-130); POTASSIUM 4.3 mmol/L (3.5-5.1); SODIUM SERUM 129 mmol/L (136-145); TRIGLYCERIDES 90 mg/dL (15-150); UREA NITROGEN, BLOOD 25 mg/dL (7-18)
[2022-04-02 15:28] VITALS: BP 129/74
[2022-04-02] MEDS ORDERED: DEXTROSE 50%-WATER 25 GM/50 ML SYRINGE IVP PRN (18:00)
[2022-04-02] MEDS ORDERED: NITROGLYCERIN 0.4 MG SUBLINGUAL TABLET #25 SL PRN (18:00)
[2022-04-02] MEDS: INSULIN LISPRO 100 UNITS/ML SQ PRN (18:24)
[2022-04-02 19:50] VITALS: BP 112/62
[2022-04-02] MEDS: ATORVASTATIN CALCIUM 40 MG TABLET PO SCH (21:29)
[2022-04-03] MEDS: HEPARIN SODIUM,PORCINE 5,000 UNITS/ML VIAL SQ SCH ×3 (00:09→16:36)
[2022-04-03 00:22] VITALS: BP 131/66
[2022-04-03 04:29] VITALS: BP 120/70
[2022-04-03 07:31] VITALS: BP 126/74
[2022-04-03] MEDS: CLOPIDOGREL BISULFATE 75 MG TABLET PO SCH (08:18)
[2022-04-03] MEDS: ASPIRIN 81 MG CHEWABLE TABLET PO SCH (08:18)
[2022-04-03] MEDS: DOCUSATE SODIUM 100 MG CAPSULE PO SCH ×2 (08:19→20:37)
[2022-04-03] MEDS: PANTOPRAZOLE SODIUM 40 MG DR TABLET PO SCH (08:19)
[2022-04-03 08:56] LABS: GLUCOMETER DEV NAME(LOC) 5S.2B; GLUCOSE,POINT OF CARE 154 MG/DL (70-110)
[2022-04-03 11:39] VITALS: BP 125/79
[2022-04-03] MEDS: INSULIN LISPRO 100 UNITS/ML SQ PRN ×2 (12:21→17:39)
[2022-04-03 15:36] VITALS: BP 101/69
[2022-04-03 19:37] LABS: GLUCOMETER DEV NAME(LOC) 5N.1C; GLUCOSE,POINT OF CARE 152 MG/DL (70-110)
[2022-04-03 19:37] LABS: GLUCOMETER DEV NAME(LOC) 5N.1C; GLUCOSE,POINT OF CARE 188 MG/DL (70-110)
[2022-04-03 20:06] VITALS: BP 104/68
[2022-04-03] MEDS: ATORVASTATIN CALCIUM 40 MG TABLET PO SCH (20:37)
[2022-04-04] MEDS: HEPARIN SODIUM,PORCINE 5,000 UNITS/ML VIAL SQ SCH ×3 (00:10→17:02)
[2022-04-04 00:14] VITALS: BP 107/69
[2022-04-04 04:55] VITALS: BP 118/60
[2022-04-04] MEDS: INSULIN LISPRO 100 UNITS/ML SQ PRN ×2 (06:14→11:55)
[2022-04-04 08:00] VITALS: BP 115/58
[2022-04-04] MEDS: PANTOPRAZOLE SODIUM 40 MG DR TABLET PO SCH (08:36)
[2022-04-04] MEDS: CLOPIDOGREL BISULFATE 75 MG TABLET PO SCH (08:36)
[2022-04-04] MEDS: ASPIRIN 81 MG CHEWABLE TABLET PO SCH (08:36)
[2022-04-04] MEDS: DOCUSATE SODIUM 100 MG CAPSULE PO SCH (08:36)
[2022-04-04] MEDS ORDERED: ASPI81TA87 PO (10:45)
[2022-04-04] MEDS ORDERED: CLOP-31 PO (10:46)
[2022-04-04] MEDS ORDERED: ATOR40TA71 PO (10:46)
[2022-04-04 11:39] VITALS: BP 125/78
[2022-04-04 11:56] LABS: GLUCOMETER DEV NAME(LOC) 5S.1B; GLUCOSE,POINT OF CARE 135 MG/DL (70-110)
[2022-04-04 11:56] LABS: GLUCOMETER DEV NAME(LOC) 5S.2B; GLUCOSE,POINT OF CARE 154 MG/DL (70-110)
[2022-04-04 15:41] LABS: COVID AG,FIA SOURCE NASAL SWAB
[2022-04-04 15:57] VITALS: BP 150/72
[2022-04-04 19:46] LABS: GLUCOMETER DEV NAME(LOC) 5N.1C; GLUCOSE,POINT OF CARE 183 MG/DL (70-110)
[2022-04-04 19:46] LABS: GLUCOMETER DEV NAME(LOC) 5N.1C; GLUCOSE,POINT OF CARE 175 MG/DL (70-110)
[2022-04-05 00:46] LABS: GLUCOMETER DEV NAME(LOC) 5S.1B; GLUCOSE,POINT OF CARE 132 MG/DL (70-110)
== END 2022-04-04 19:01 | DRG 65 ==
LOC: 5S 17:30
PROVIDERS: ADMIT Internal Medicine; ATTEND Internal Medicine
DX: I63.9 Cerebral infarction, unspecified (principal); E87.1 Hypo-osmolality and hyponatremia; I20.0 Unstable angina; E11.9 Type 2 diabetes mellitus without complications; E78.5 Hyperlipidemia, unspecified; G89.29 Other chronic pain; I10 Essential (primary) hypertension; F03.90 Unspecified dementia, unspecified severity, without behavioral disturbance, psychotic disturbance, mood disturbance, and anxiety; Z20.822 Contact with and (suspected) exposure to COVID-19; Z79.02 Long term (current) use of antithrombotics/antiplatelets; Z79.82 Long term (current) use of aspirin; Z86.73 Personal history of transient ischemic attack (TIA), and cerebral infarction without residual deficits; Z91.199 Patient's noncompliance with other medical treatment and regimen due to unspecified reason; Z79.899 Other long term (current) drug therapy; Z88.8 Allergy status to other drugs, medicaments and biological substances; R47.81 Slurred speech; R27.8 Other lack of coordination
CPT/HCPCS: 70450; 80048; 80061; 82962; 83036; 84484; 85025; 92610; 93005; 93306; 93880; 97112; 97116; 97163; 97167; 97530; 97535; J1644